=== PATIENT | male | born 1975 | race African-American/Black ===

== ENCOUNTER 2024-03-04 11:25 | Emergency (ER) | payer OTHER, SELFPAY ==
--- NOTE | ~2024-03-04 | US_ITS ---
Limited Abdominal Sonogram: Real-time sonographic imaging of the right upper quadrant was performed. Clinical History: Pain Findings: The liver appears echogenic, with no evidence of mass lesion or bile duct dilatation. Main portal vein demonstrates normal direction of flow. The gallbladder is well distended, and appears no rmal with no evidence of gallstone or wall thickening. The common bile duct measures 4 mm. The visua lized pancreas, aorta, and IVC are unremarkable. Impression: Diffuse fatty infiltration of the liver. Reviewed, dictated and finalized at location M. Impression: Diffuse fatty infiltration of the liver.
--- NOTE | ~2024-03-04 | CT_ITS ---
Non-contrast Head CT History: Headache Technique: Axial non-contrast imaging of the brain was performed. Dose reduction technique was used on this scan by utilizing automated exposure control and iterative reconstruction technique. The dose -length product (DLP) was 605.33 mGy-cm. Findings: There is no evidence of intracranial hemorrhage, mass lesion, or acute infarct. Brain par enchyma appears normal. The ventricles and subarachnoid spaces are normal in size. The calvarium ap pears normal. The visualized paranasal sinuses and mastoid air cells are clear. Impression: No significant abnormality seen. Reviewed, dictated and finalized at location . Impression: No significant abnormality seen.
[2024-03-04 11:30] VITALS: BP 156/92; RESP 16; TEMP 37.2; O2SAT 100
[2024-03-04 11:46] VITALS: BP 154/94; PULSE 109; RESP 17; TEMP 36.8; O2SAT 98
[2024-03-04] MEDS: KETOROLAC 30 MG/ML VIAL (*BKC) IV PUSH (12:06)
[2024-03-04] MEDS: SODIUM CHLORIDE 0.9% IV 1,000 ML 999 ML IV CONT (12:06)
[2024-03-04] MEDS: ONDANSETRON INJ 4 MG/2 ML VIAL IV PUSH (12:06)
[2024-03-04 12:17] LABS: Basophils Percent Auto 0.1 % (0.2-1.2); Eosinophils Percent Auto 0.1 % (0-4.4); Hemoglobin 13.6 g/dL (14.0-18.0); Immature Granulocyte Absolute 0.07 K/mm3 (0.00-0.031); Immature Granulocyte Percent A 0.5 % (0-0.5); Immature Platelet Fraction Pct 7.6 % (0.9-11.2); Lymphocytes Absolute Auto 0.85 K/mm3 (0.9-3.2); Lymphocytes Percent Auto 6.2 % (18.3-44.2); Mean Corpuscular HGB Conc 33.2 g/dl (32-36); Mean Corpuscular Hemoglobin 25.9 pg (26-34); Mean Corpuscular Volume 78.1 fl (80-100); Mean Platelet Volume 10.5 fl (7.4-10.4); Monocytes Absolute Auto 1.6 K/mm3 (0.1-0.6); Monocytes Percent Auto 11.5 % (2.6-8.5); Neutrophils Absolute Auto 11.2 K/mm3 (1.3-6.7); Neutrophils Percent Auto 81.6 % (45.5-73.1); Platelet Count Result 129 k/mm3 (150-375); Red Blood Count 5.25 M/mm3 (4.6-6.20); Red Cell Distribution Width 13.7 % (11.5-14.5); White Blood Count 13.7 K/mm3 (4.5-10.0)
[2024-03-04 12:28] LABS: Lipase 65 U/L (23-300)
[2024-03-04 12:30] LABS: INR 1.1
[2024-03-04 12:31] LABS: Partial Thromboplastin Time 35.3 Seconds (22.3-36.8)
[2024-03-04 12:39] LABS: Alanine Aminotransferase 84 U/L (6-50); Albumin Level 3.9 g/dL (3.5-5.1); Alkaline Phosphatase 105 U/L (38-126); Anion Gap 6 mmol/L (4-12); Aspartate Amino Transferase 93 U/L (17-59); Bilirubin,Total 3.7 mg/dL (0.2-1.3); Blood Urea Nitrogen 30 mg/dL (9-20); Calcium 8.6 mg/dL (8.4-10.2); Carbon Dioxide 30 mmol/L (22-30); Chloride 95 mmol/L (98-107); Estimated CRCL calculation 73 ml/min; Estimated Glomerular Filt Rate > 60; Glucose 99 mg/dL (65-110); Potassium 3.4 mmol/L (3.4-5.0); Sodium 131 mmol/L (137-145)
[2024-03-04 12:52] LABS: Influenza A QL RT-PCR Negative (Negative); Influenza B QL RT-PCR Negative (Negative); RSV RNA, RT-PCR Negative (Negative); SARS-CoV-2 RNA PCR Positive (Negative)
[2024-03-04 13:30] VITALS: BP 133/78; PULSE 100; RESP 16; TEMP 36.7; O2SAT 98
--- NOTE | 2024-03-04 14:14 | ED.GENADULT ---
HPI - General Adult General Chief complaint: Headache Stated complaint: Headache, neck pain, fever Time Seen by Provider: 03/04/24 11:28 History of Present Illness HPI narrative: Patient is a 49-year-old male who presents ER with reports of headache. Ongoing for 5 days. Associated with some achiness in his neck. He has also been having upset stomach and burning urination. He endorses fevers and chills and sweats. He is a semi-log truck driver. He is from [place]. No chest pain or chest pressure. No numbness or tingling. No change in vision or hearing. No aggravating or alleviating factors for his headache. Related Data Allergies Allergy/AdvReac Type Severity Reaction Status Date / Time ibuprofen AdvReac Abdominal Verified 03/04/24 11:30 Pain Review of Systems Review of Systems: All systems reviewed & are unremarkable except as noted in HPI and below Constitutional: Constitutional: Reports chills, Reports fatigue and Reports fever(s) ENT: Reports system reviewed and no additional complaints, except as documented Cardiovascular: Cardiovascular: Reports no additional cardiovascular complaints Respiratory: Respiratory: Reports no additional respiratory complaints Gastrointestinal: Gastrointestinal: Reports abdominal pain, Denies diarrhea, Denies nausea and Denies vomiting Genitourinary: Genitourinary: Reports dysuria, Denies urinary frequency and Denies urinary incontinence Musculoskeletal: Musculoskeletal: Reports myalgias, Denies arthralgias and Denies joint swelling Neurologic: Denies syncope, Reports headache(s), Denies focal weakness and Denies numbness PMFSH Past Medical History Medical History (Updated 03/04/24 @ 14:30 by Arsen Martinez MD) Healthy adult male Surgical History Surgical History (Updated 03/04/24 @ 14:16 by Arsen Martinez MD) No pertinent past surgical history Exam Narrative: GENERAL: Well-appearing, well-nourished, and in no acute distress. HEAD: Normocephalic, atraumatic. ENT: Mucous membranes moist. NECK: Supple. full range of motion, mild paraspinal discomfort. No meningismus. CHEST: Clear to auscultation. No respiratory distress. HEART: Regular rate and rhythm. Normal peripheral pulses. ABDOMEN: Soft, nontender, nondistended. EXTREMITIES: Normal range of motion. No edema. SKIN: Warm, dry, no rash. NEURO: Alert and oriented x3. PSYCH: Normal mood and affect. Course Course Emergency Course: COVID positive. Fatty liver on the see ultrasound. Discharge home with Antibiotics for UTI, patient has no concerns for urethritis. Vital Signs Vital signs: Vital Signs Temperature 98.9 F 03/04/24 11:30 Respiratory Rate 16 03/04/24 11:30 Blood Pressure 156/92 H 03/04/24 11:30 Pulse Oximetry 100 03/04/24 11:30 Oxygen Delivery Room Air 03/04/24 11:30 Temperature 98.0 F 03/04/24 13:30 Pulse Rate 100 03/04/24 13:30 Respiratory Rate 16 03/04/24 13:30 Blood Pressure 133/78 03/04/24 13:30 Pulse Oximetry 98 03/04/24 13:30 Oxygen Delivery Room Air 03/04/24 11:30 Medical Decision Making Vital Signs Vital Signs: Vital Signs Temperature 98.9 F 03/04/24 11:30 Respiratory Rate 16 03/04/24 11:30 Blood Pressure 156/92 H 03/04/24 11:30 Pulse Oximetry 100 03/04/24 11:30 Oxygen Delivery Room Air 03/04/24 11:30 Temperature 98.0 F 03/04/24 13:30 Pulse Rate 100 03/04/24 13:30 Respiratory Rate 16 03/04/24 13:30 Blood Pressure 133/78 03/04/24 13:30 Pulse Oximetry 98 03/04/24 13:30 Oxygen Delivery Room Air 03/04/24 11:30 Lab Data 03/04/24 12:03 03/04/24 12:03 Labs: Lab Results 03/04/24 03/04/24 Range/Units 12:03 14:02 WBC 13.7 H (4.5-10.0) K/mm3 RBC 5.25 (4.6-6.20) M/mm3 Hgb 13.6 L (14.0-18.0) g/dL Hct 41.0 L (42.0-52.0) % MCV 78.1 L (80-100) fl MCH 25.9 L (26-34) pg MCHC 33.2 (32-36) g/dl RDW 13.7 (11.5-
[2024-03-04 14:20] LABS: Appearance Urine Cloudy (Clear); Bacteria Urine None Seen /hpf; Bilirubin Urine 1+ (Negative); Blood Urine 3+ (Negative); Color Urine Dark Yellow (Yellow); Glucose Urine UA Negative (Negative); Ketones Urine Trace mg/dL (Negative); Leukocyte Esterase Ur 1+ LEU/UL (Negative); Nitrate Urine Negative (Negative); Protein Urine 2+ mg/dL (Negative); Specific Grav Ur 1.018 (1.001-1.035); Squamous Epithelial Cell Urine Moderate /hpf (Few); WBC Urine 21-50 /hpf (0-3); pH Urine 5.5 (5.0-9.0)
[2024-03-04 14:23] LABS: Add Urine Microscopic? YES
== END 2024-03-04 14:42 | disposition home or self-care (01) ==
PROVIDERS: Emergency Provider Emergency Medicine
DX: U07.1 COVID-19 (principal); N39.0 Urinary tract infection, site not specified; K76.0 Fatty (change of) liver, not elsewhere classified
CPT/HCPCS: 36415; 70450; 76705; 80053; 81001; 83690; 85025; 85055; 85610; 85730; 87086; 87088; 87637; 96374; 96375; 99284; J1885; J2405; J7030